=== PATIENT | female | born 1985 | race Caucasian/White ===

== ENCOUNTER 2021-01-21 11:31 | Emergency (ER) | payer OTHER ==
[~2021-01-21 11:31] MED LIST: OXCARBAZEPINE300 MG PO; OXCARBAZEPINE600 MG PO
[2021-01-21 13:10] LABS: BILIRUBIN NEGATIVE (NEGATIVE); BLOOD NEGATIVE Ery/uL (NEGATIVE); CLARITY CLOUDY (CLEAR); COLOR ORANGE (YELLOW); GLUCOSE (U) NORMAL (NORMAL); LEUKOCYTES NEGATIVE Leu/uL (NEGATIVE); NITRITE NEGATIVE (NEGATIVE); PROTEIN NEGATIVE (NEGATIVE); SPECIFIC GRAVITY >=1.030 (1.001-1.030); UROBILINOGEN 0.2 mg/dL (0.2-1.0)
[2021-01-21 13:14] LABS: BARBITURATES NEGATIVE (NEGATIVE); ECSTASY (MDMA) POSITIVE (NEGATIVE); MARIJUANA (THC) NEGATIVE (NEGATIVE); METHADONE NEGATIVE (NEGATIVE); OPIATES POSITIVE (NEGATIVE)
[2021-01-21 13:14] LABS: ALBUMIN 3.4 g/dL (3.4-5.0); ALKALINE PHOSHATASE 106 U/L (46-116); ALT 24 U/L (14-59); AST 13 U/L (15-37); BILIRUBIN - TOTAL <0.1 mg/dL (0.2-1.0); BUN 20 mg/dL (7-18); BUN/CREAT RATIO (CALC) 29.4 RATIO; CHLORIDE 106 mmol/L (98-107); CO2 (BICARBONATE) 26 mmol/L (21-32); CREATININE 0.68 mg/dL (0.51-0.95); GLOBULIN (CALCULATION) 4.8 g/dL; GLUCOSE 99 mg/dL (74-106); POTASSIUM 3.7 mmol/L (3.5-5.1); TOTAL PROTEIN 8.2 g/dL (6.4-8.2)
[2021-01-21 13:15] LABS: AMPHETAMINES POSITIVE (NEGATIVE); OXYCODONE NEGATIVE (NEGATIVE)
[2021-01-21 13:46] LABS: BASOPHIL 0.3 % (0-2); EOSINOPHIL 0 % (0-5); HCT 44.2 % (37.0-47.0); HGB 14.6 g/dl (12.5-16.0); LYMPHOCYTE 26.1 % (15-48); MCH 31.7 pg (25.0-31.0); MCV 95.9 fL (78.0-100.0); MONOCYTE 5.6 % (0-12); MPV 10.5 fL (6.0-9.5); NEUTROPHIL 67.6 % (41-80); NRBC 0; PLT 258 K/uL (150-400); RBC 4.61 M/uL (4.20-5.40); RDW 12.6 % (11.5-14.0); WBC 7.7 K/uL (4.0-10.5)
[2021-01-21] MEDS ORDERED: TRILEPTAL600 MG PO (14:06)
== END 2021-01-21 14:50 | disposition home or self-care (01) ==
LOC: FER 11:31
PROVIDERS: Nurse Practitioner Family
DX: R42 Dizziness and giddiness (principal); F17.210 Nicotine dependence, cigarettes, uncomplicated; F15.10 Other stimulant abuse, uncomplicated; F11.10 Opioid abuse, uncomplicated; Z76.0 Encounter for issue of repeat prescription
CPT/HCPCS: 36415; 80053; 80305; 81003; 85025; 99284; J7030